=== PATIENT | male | born 1940 | race Caucasian/White ===

== ENCOUNTER 2018-09-16 13:05 | Inpatient (IN) | payer MEDICARE, BC ==
[~2018-09-16] VITALS: Ht 170.2 cm; Wt 89.3 kg
--- NOTE | 2018-09-16 13:19 | NUR ---
pt bib ems from [facility]. pt called ems today after "not feeling right" and dizziness upon waking. pt was found to have hr 36-38 bpm. per ems, pt was administered atropine at previous hospital with no response. iv established en route and 1200mL ns administered service captain. pt connected to monitors. pads placed and connected to zoll. hr 36-38, all other vss. 2L nc placed service captain and pt remains on o2 at this time. edmd present for assessment. ekg completed. unable to determine rhythm at this time. per edmd, ok to provide water. water provided. call light within reach. awaiting further orders.
[2018-09-16] MEDS ORDERED: SODIUM CHLORIDE FLUSH 10ML SYR IVF ONE ×2 (13:30→14:30)
[2018-09-16] MEDS ORDERED: TAMS-11 PO (13:34)
[2018-09-16] MEDS ORDERED: ASPI-496 PO (13:34)
[2018-09-16] MEDS ORDERED: INSU100I13 SC (13:34)
[2018-09-16] MEDS ORDERED: DILT240C55 PO (13:34)
[2018-09-16] MEDS ORDERED: ESZO1TAB8 PO (13:34)
[2018-09-16] MEDS ORDERED: FURO20TA3 PO (13:34)
[2018-09-16] MEDS ORDERED: TERA2CAP3 PO (13:34)
[2018-09-16] MEDS ORDERED: INSU100C5 SQ-INSULIN (13:34)
[2018-09-16] MEDS ORDERED: ATOR-2 PO (13:34)
[2018-09-16] MEDS ORDERED: CHOL500015 PO (13:34)
[2018-09-16] MEDS ORDERED: PATI8.4P PO (13:34)
[2018-09-16] MEDS ORDERED: CARV25TA12 PO (13:34)
[2018-09-16 13:44] LABS: BASOPHILS # (AUTO) 0.04 x10^3/uL (0-0.1); BASOPHILS % (AUTO) 0 % (0-1); EOSINOPHILS # (AUTO) 0.04 x10^3/uL (0-0.4); EOSINOPHILS % (AUTO) 1 % (1-7); LYMPHOCYTES # (AUTO) 0.93 x10^3/uL (1-3.4); LYMPHOCYTES % (AUTO) 11 % (22-44); MD NO; MEAN CORPUSCULAR HEMOGLOBIN 30.5 pg (27.5-34.5); MEAN CORPUSCULAR HGB CONC 32.5 g/dL (33.2-36.2); MEAN CORPUSCULAR VOLUME 93.9 fL (81-97); MEAN PLATELET VOLUME 7.8 fL (7.4-10.4); MONOCYTES # (AUTO) 0.68 x10^3/uL (0.2-0.8); MONOCYTES % (AUTO) 8 % (2-9); NEUTROPHILS % (AUTO) 80 % (42-75); PLATELET COUNT 278 x10^3/uL (130-400); RED BLOOD COUNT 3.56 x10^6/uL (4.38-5.82); RED CELL DISTRIBUTION WIDTH 14.1 % (9.4-14.8)
[2018-09-16 13:54] LABS: ALBUMIN 3.4 g/dL (3.4-5.0); ANION GAP 5 mmol/L (5-15); CALCIUM 8.2 mg/dL (8.5-10.1); CHLORIDE 106 mmol/L (98-107)
[2018-09-16 13:55] LABS: CREATININE 2.72 mg/dL (0.7-1.3)
[2018-09-16] MEDS ORDERED: SODIUM BICARB 8.4%, 50ML SYRINGE ONE (14:18)
[2018-09-16] MEDS ORDERED: SODIUM BICARBONATE 1 MEQ/ML, 50ML VIAL ONE (14:18)
[2018-09-16] MEDS ORDERED: INSULIN LISPRO 100 UNITS/ML, PEN ONE (14:20)
[2018-09-16] MEDS ORDERED: DEXTROSE 50%, 50ML SYRINGE IVPush ONE (14:30)
[2018-09-16] MEDS ORDERED: INSULIN REGULAR 100 UNITS/ML, 3ML VIAL IVPush ONE (14:30)
[2018-09-16] MEDS ORDERED: SODIUM CHLORIDE 0.9% 1,000ML IVBOLUS ONE (14:30)
[2018-09-16] MEDS ORDERED: SODIUM BICARB 8.4%, 50ML SYRINGE IVPush ONE (14:30)
--- NOTE | 2018-09-16 14:44 | NUR ---
PT RESTING IN ROOM. BLANKETS PROVIDED. PT MEDICATED PER JUL. HR UP TO 50S IMMEDIATELY AFTER BODY COVERER. EDMD UPDATED. ALL OTHER VSS. NO OTHER NEEDS REQUESTED.
[2018-09-16] MEDS ORDERED: SODIUM CHLORIDE FLUSH 10ML SYR IVF PRN (15:30)
[2018-09-16 15:47] LABS: BASOPHILS # (AUTO) 0.02 x10^3/uL (0-0.1); BASOPHILS % (AUTO) 0 % (0-1); EOSINOPHILS # (AUTO) 0.04 x10^3/uL (0-0.4); EOSINOPHILS % (AUTO) 1 % (1-7); LYMPHOCYTES # (AUTO) 1.01 x10^3/uL (1-3.4); LYMPHOCYTES % (AUTO) 14 % (22-44); MD NO; MEAN CORPUSCULAR HEMOGLOBIN 31.5 pg (27.5-34.5); MEAN CORPUSCULAR HGB CONC 33.6 g/dL (33.2-36.2); MEAN CORPUSCULAR VOLUME 93.8 fL (81-97); MEAN PLATELET VOLUME 7.8 fL (7.4-10.4); MONOCYTES # (AUTO) 0.66 x10^3/uL (0.2-0.8); MONOCYTES % (AUTO) 9 % (2-9); NEUTROPHILS # (AUTO) 5.67 x10^3/uL (1.8-6.8); NEUTROPHILS % (AUTO) 77 % (42-75); PLATELET COUNT 265 x10^3/uL (130-400); RED BLOOD COUNT 3.45 x10^6/uL (4.38-5.82); RED CELL DISTRIBUTION WIDTH 14.1 % (9.4-14.8)
[2018-09-16 15:57] LABS: ANION GAP 5 mmol/L (5-15); CALCIUM 7.9 mg/dL (8.5-10.1); CHLORIDE 108 mmol/L (98-107); CREATININE 2.54 mg/dL (0.7-1.3)
[2018-09-16] MEDS ORDERED: hydrALAzine 20 MG/ML, 1ML IVPush PRN (16:00)
[2018-09-16] MEDS ORDERED: ACETAMINOPHEN 325 MG TABLET PO PRN (16:00)
[2018-09-16 16:07] LABS: THYROID STIMULATING HORMONE 0.747 mIU/L (0.358-3.740)
[2018-09-16 16:34] LABS: TROPONIN I < 0.015 ng/mL (0.000-0.045)
[2018-09-16 16:41] LABS: HEMOGLOBIN A1C 9.5 % (4.2-6.3)
[2018-09-16 18:04] VITALS: BP 153/64
[2018-09-16 19:44] VITALS: BP 160/64
[2018-09-16] MEDS: ATORVASTATIN 40 MG TABLET PO SCH (20:59)
[2018-09-16] MEDS: TERAZOSIN 2MG CAPSULE PO SCH (20:59)
[2018-09-16] MEDS ORDERED: AMLODIPINE 5 MG TABLET PO ONE (21:00)
[2018-09-16] MEDS: INSULIN GLARGINE 100 UNITS/ML, PEN SQ-INSULIN SCH (21:26)
[2018-09-16 22:44] LABS: TROPONIN I < 0.015 ng/mL (0.000-0.045)
[2018-09-17] VITALS (8 sets, daily range): BP systolic 135–177; BP diastolic 62–83
[2018-09-17] MEDS: ASPIRIN 81 MG TABLET EC PO SCH (09:13)
[2018-09-17] MEDS: CHOLECALCIFEROL 5,000u TAB PO SCH (09:13)
[2018-09-17] MEDS: TAMSULOSIN 0.4 MG CAP.ER.24H PO SCH (09:13)
[2018-09-17 11:25] LABS: BASOPHILS % (AUTO) 0 % (0-1); EOSINOPHILS # (AUTO) 0.13 x10^3/uL (0-0.4); EOSINOPHILS % (AUTO) 2 % (1-7); LYMPHOCYTES # (AUTO) 0.76 x10^3/uL (1-3.4); LYMPHOCYTES % (AUTO) 11 % (22-44); MD NO; MEAN CORPUSCULAR HEMOGLOBIN 31.1 pg (27.5-34.5); MEAN CORPUSCULAR VOLUME 94.3 fL (81-97); MEAN PLATELET VOLUME 7.7 fL (7.4-10.4); MONOCYTES # (AUTO) 0.76 x10^3/uL (0.2-0.8); MONOCYTES % (AUTO) 11 % (2-9); NEUTROPHILS # (AUTO) 5.06 x10^3/uL (1.8-6.8); NEUTROPHILS % (AUTO) 75 % (42-75); PLATELET COUNT 264 x10^3/uL (130-400)
[2018-09-17 11:39] LABS: ANION GAP 4 mmol/L (5-15); CALCIUM 8.3 mg/dL (8.5-10.1); CHLORIDE 110 mmol/L (98-107)
[2018-09-17] MEDS: AMLODIPINE 5 MG TABLET PO SCH ×2 (12:11→20:59)
[2018-09-17] MEDS: CARVEDILOL 6.25 MG TABLET PO SCH (17:50)
[2018-09-17] MEDS: ATORVASTATIN 40 MG TABLET PO SCH (20:59)
[2018-09-17] MEDS: TERAZOSIN 2MG CAPSULE PO SCH (20:59)
[2018-09-17] MEDS: INSULIN GLARGINE 100 UNITS/ML, PEN SQ-INSULIN SCH (21:00)
[2018-09-18 01:55] VITALS: BP 158/73
[2018-09-18 06:24] VITALS: BP 158/73
[2018-09-18] MEDS: CARVEDILOL 6.25 MG TABLET PO SCH (06:25)
[2018-09-18 07:30] VITALS: BP 167/68
[2018-09-18] MEDS: ASPIRIN 81 MG TABLET EC PO SCH (08:54)
[2018-09-18] MEDS: AMLODIPINE 5 MG TABLET PO SCH (08:54)
[2018-09-18] MEDS: CHOLECALCIFEROL 5,000u TAB PO SCH (08:55)
[2018-09-18] MEDS: TAMSULOSIN 0.4 MG CAP.ER.24H PO SCH (08:55)
[2018-09-18] MEDS ORDERED: CARV6.2512 PO (10:52)
[2018-09-18] MEDS ORDERED: AMLO-150 PO (10:52)
[2018-09-18] MEDS ORDERED: HYDR-3341 PO (10:52)
== END 2018-09-18 13:25 | disposition home or self-care (01) | DRG 640 ==
LOC: ED 15:27 → EDIP 15:28 → ED 15:44 → EDIP 16:07 → 5SO 17:42 → DCLOUNGE 09-18 13:08
PROVIDERS: ADMIT Internal Medicine; ATTEND Internal Medicine
DX: E87.5 Hyperkalemia (principal); N17.0 Acute kidney failure with tubular necrosis; E87.1 Hypo-osmolality and hyponatremia; I12.9 Hypertensive chronic kidney disease with stage 1 through stage 4 chronic kidney disease, or unspecified chronic kidney disease; G47.00 Insomnia, unspecified; M19.90 Unspecified osteoarthritis, unspecified site; R91.1 Solitary pulmonary nodule; I95.9 Hypotension, unspecified; D64.9 Anemia, unspecified; E78.5 Hyperlipidemia, unspecified; F17.210 Nicotine dependence, cigarettes, uncomplicated; Z96.651 Presence of right artificial knee joint; N18.9 Chronic kidney disease, unspecified; E11.22 Type 2 diabetes mellitus with diabetic chronic kidney disease; E66.9 Obesity, unspecified; Z68.30 Body mass index [BMI] 30.0-30.9, adult; Z85.528 Personal history of other malignant neoplasm of kidney; Z90.5 Acquired absence of kidney; Z90.49 Acquired absence of other specified parts of digestive tract; Z98.52 Vasectomy status; Z98.49 Cataract extraction status, unspecified eye
CPT/HCPCS: 36415; 80048; 82040; 82962; 83036; 84443; 84484; 85025; 93005; 93306; 96374; 96375; 99291; G0378; J1815; J7030

== ENCOUNTER 2018-10-24 11:48 | Outpatient (CLI) | payer MEDICARE, BC ==
[~2018-10-24 11:48] MED LIST: AMLO-150 PO; ASPI-496 PO; ATOR-2 PO; CARV25TA12 PO; CARV6.2512 PO; CHOL500015 PO; DILT240C55 PO; ESZO1TAB8 PO; FURO20TA3 PO; HYDR-3341 PO; INSU100C5 SQ-INSULIN; INSU100I13 SC; PATI8.4P PO; REGADENOSON 0.4 MG/5 ML SYRINGE ONE; TAMS-11 PO; TERA2CAP3 PO
== END 2018-10-24 23:59 | disposition home or self-care (01) ==
LOC: CFH 11:48
PROVIDERS: ATTEND Internal Medicine Cardiovascular Disease
DX: R06.02 Shortness of breath (principal)
CPT/HCPCS: 78452; 93017; A9502; J2785

== ENCOUNTER 2019-04-28 21:51 | Inpatient (IN) | payer MEDICARE, BC ==
[~2019-04-28] VITALS: Ht 167.6 cm; Wt 84.0 kg
[~2019-04-28 21:51] MED LIST changes: -REGADENOSON 0.4 MG/5 ML SYRINGE ONE
[2019-04-28] MEDS ORDERED: SODIUM CHLORIDE 0.9% 1,000 ML IV ONE (22:07)
[2019-04-28] MEDS ORDERED: SODIUM CHLORIDE FLUSH 10ML SYR IVF ONE (22:30)
[2019-04-28] MEDS ORDERED: INSU100I13 SC (22:43)
[2019-04-28] MEDS ORDERED: LISI5TAB7 PO (22:45)
[2019-04-28] MEDS ORDERED: LISINOPRIL 5 MG TABLET PO SCH (23:00)
[2019-04-28] MEDS ORDERED: ZOLPIDEM 5MG TABLET PO PRN (23:00)
[2019-04-28] MEDS: TERAZOSIN 2MG CAPSULE PO SCH (23:00)
[2019-04-28 23:08] LABS: BASOPHILS # (AUTO) 0.06 x10^3/uL (0-0.1); BASOPHILS % (AUTO) 1 % (0-1); EOSINOPHILS # (AUTO) 0.08 x10^3/uL (0-0.4); EOSINOPHILS % (AUTO) 1 % (1-7); LYMPHOCYTES # (AUTO) 1.13 x10^3/uL (1-3.4); LYMPHOCYTES % (AUTO) 13 % (22-44); MD NO; MEAN CORPUSCULAR HEMOGLOBIN 30.9 pg (27.5-34.5); MEAN CORPUSCULAR HGB CONC 33.1 g/dL (33.2-36.2); MEAN CORPUSCULAR VOLUME 93.4 fL (81-97); MEAN PLATELET VOLUME 8.1 fL (7.4-10.4); MONOCYTES % (AUTO) 8 % (2-9); NEUTROPHILS # (AUTO) 6.51 x10^3/uL (1.8-6.8); NEUTROPHILS % (AUTO) 77 % (42-75); PLATELET COUNT 331 x10^3/uL (130-400); RED BLOOD COUNT 4.26 x10^6/uL (4.38-5.82); RED CELL DISTRIBUTION WIDTH 14.1 % (9.4-14.8)
[2019-04-28 23:15] LABS: ALANINE AMINOTRANSFERASE 27 U/L (12-78); ANION GAP 6 mmol/L (5-15); CALCIUM 8.7 mg/dL (8.5-10.1); CHLORIDE 106 mmol/L (98-107)
[2019-04-28 23:18] LABS: ALKALINE PHOSPHATASE 71 U/L (45-117); BILIRUBIN,TOTAL 0.3 mg/dL (0.2-1.0); CREATININE 2.78 mg/dL (0.7-1.3); TOTAL PROTEIN 6.3 g/dL (6.4-8.2)
[2019-04-28] MEDS ORDERED: BISACODYL 10 MG SUPP PR PRN (23:30)
[2019-04-28] MEDS ORDERED: OXYcodone IR 5MG TABLET PO PRN (23:30)
[2019-04-28] MEDS ORDERED: ONDANSETRON ODT 4 MG PO PRN (23:30)
[2019-04-28] MEDS ORDERED: DOCUSATE 100 MG CAPSULE PO PRN (23:30)
[2019-04-28] MEDS ORDERED: ONDANSETRON 2MG/ML, 2ML IVPush PRN (23:30)
[2019-04-28] MEDS ORDERED: ACETAMINOPHEN 325 MG TABLET PO PRN (23:30)
[2019-04-28] MEDS ORDERED: morphine SULFATE 10 MG/ML, 1ML IVPush PRN (23:30)
[2019-04-28] MEDS ORDERED: LACTATED RINGERS 1,000 ML IV SCH (23:30)
[2019-04-28] MEDS ORDERED: POLYETHYLENE GLYCOL 17 GM PACKET PO PRN (23:30)
[2019-04-28] MEDS ORDERED: hydrALAzine 20 MG/ML, 1ML IVPush PRN (23:30)
[2019-04-28] MEDS ORDERED: PROMETHAZINE 25 MG/ML, 1ML IM PRN (23:30)
[2019-04-28 23:51] LABS: FREE T4 (FREE THYROXINE) 1.06 ng/dL (0.76-1.46)
[2019-04-29] MEDS ORDERED: TERAZOSIN 1MG CAPSULE ONE (00:54)
[2019-04-29 00:58] LABS: HEMOGLOBIN A1C 8.6 % (4.2-6.3)
[2019-04-29] MEDS: HEPARIN 5,000 UNITS/ML, 1ML SQ SCH ×3 (01:01→16:44)
[2019-04-29] MEDS: ATORVASTATIN 40 MG TABLET PO SCH ×2 (01:01→21:46)
[2019-04-29] MEDS: ISOSORBIDE MONONITRATE ER 60 MG TABLET PO SCH ×2 (01:01→23:30)
[2019-04-29] MEDS: INSULIN GLARGINE 100 UNITS/ML, PEN SQ-INSULIN SCH ×2 (01:02→21:59)
[2019-04-29] MEDS: AMLODIPINE 5 MG TABLET PO SCH ×3 (01:02→21:46)
[2019-04-29] MEDS: CEFTRIAXONE PMX 2GM/50ML 50 ML IV SCH (01:15)
[2019-04-29 01:41] VITALS: BP 154/82
[2019-04-29] MEDS: CARVEDILOL 6.25 MG TABLET PO SCH ×2 (05:31→16:43)
[2019-04-29] MEDS ORDERED: ASPIRIN 325 MG TABLET EC PO SCH (06:00)
[2019-04-29 07:15] LABS: BASOPHILS # (AUTO) 0.04 x10^3/uL (0-0.1); BASOPHILS % (AUTO) 1 % (0-1); EOSINOPHILS # (AUTO) 0.11 x10^3/uL (0-0.4); EOSINOPHILS % (AUTO) 2 % (1-7); LYMPHOCYTES # (AUTO) 0.98 x10^3/uL (1-3.4); LYMPHOCYTES % (AUTO) 14 % (22-44); MD NO; MEAN CORPUSCULAR HEMOGLOBIN 30.8 pg (27.5-34.5); MEAN CORPUSCULAR HGB CONC 32.6 g/dL (33.2-36.2); MEAN CORPUSCULAR VOLUME 94.4 fL (81-97); MEAN PLATELET VOLUME 8.1 fL (7.4-10.4); MONOCYTES # (AUTO) 0.71 x10^3/uL (0.2-0.8); MONOCYTES % (AUTO) 10 % (2-9); NEUTROPHILS # (AUTO) 4.99 x10^3/uL (1.8-6.8); NEUTROPHILS % (AUTO) 73 % (42-75); PLATELET COUNT 285 x10^3/uL (130-400); RED BLOOD COUNT 3.84 x10^6/uL (4.38-5.82); RED CELL DISTRIBUTION WIDTH 14.2 % (9.4-14.8)
[2019-04-29 07:19] VITALS: BP 116/60
[2019-04-29 07:22] LABS: ALANINE AMINOTRANSFERASE 20 U/L (12-78); ALBUMIN 2.5 g/dL (3.4-5.0); ANION GAP 8 mmol/L (5-15); CHLORIDE 107 mmol/L (98-107); CHOLESTEROL, TOTAL 126 mg/dL (140-239); CREATININE 2.88 mg/dL (0.7-1.3)
[2019-04-29 07:25] LABS: ALKALINE PHOSPHATASE 66 U/L (45-117); BILIRUBIN,TOTAL 0.2 mg/dL (0.2-1.0); CHOL/HDL RATIO 4.1; HDL CHOL % 25 % (26-37); HDL CHOLESTEROL (DIRECT) 31 mg/dL (40-60); LDL CHOLESTEROL,CALCULATED 48 mg/dL (54-169); LDL/HDL RATIO 1.5 (0.5-3.0); TOTAL PROTEIN 5.6 g/dL (6.4-8.2); TRIGLYCERIDES 237 mg/dL (50-200); VLDL CHOLESTEROL 47 mg/dL (0-25)
[2019-04-29] MEDS: CHOLECALCIFEROL 5,000u TAB PO SCH (08:37)
[2019-04-29] MEDS: INSULIN LISPRO 100 UNITS/ML, PEN SQ-INSULIN SCH ×4 (08:46→21:58)
[2019-04-29] MEDS ORDERED: OMNIPAQUE 350 MG/ML, 100ML BOTTLE ONE (09:22)
[2019-04-29] MEDS ORDERED: GOLYTELY 4,000ML ORAL.SOL PO ONE (11:00)
[2019-04-29 14:00] VITALS: BP 134/71
[2019-04-29 16:42] VITALS: BP 140/83
[2019-04-29] MEDS: SODIUM CHLORIDE 0.9% 1,000 ML IV SCH (16:44)
[2019-04-29 20:00] LABS: MICROSCOPIC AUTO
[2019-04-29 20:12] LABS: CREATININE,URINE RANDOM 70.7 mg/dL
[2019-04-29 20:37] VITALS: BP 127/76
[2019-04-29] MEDS: TERAZOSIN 2MG CAPSULE PO SCH (21:45)
[2019-04-30] MEDS: HEPARIN 5,000 UNITS/ML, 1ML SQ SCH ×2 (00:40→20:24)
[2019-04-30] MEDS: CEFTRIAXONE PMX 2GM/50ML 50 ML IV SCH (00:40)
[2019-04-30 00:49] VITALS: BP 132/66
[2019-04-30] MEDS: SODIUM CHLORIDE 0.9% 1,000 ML IV SCH (02:31)
[2019-04-30 05:33] LABS: BASOPHILS # (AUTO) 0.04 x10^3/uL (0-0.1); BASOPHILS % (AUTO) 1 % (0-1); EOSINOPHILS # (AUTO) 0.17 x10^3/uL (0-0.4); EOSINOPHILS % (AUTO) 3 % (1-7); LYMPHOCYTES # (AUTO) 1.15 x10^3/uL (1-3.4); LYMPHOCYTES % (AUTO) 17 % (22-44); MD NO; MEAN CORPUSCULAR HEMOGLOBIN 31.8 pg (27.5-34.5); MEAN CORPUSCULAR HGB CONC 33.4 g/dL (33.2-36.2); MEAN CORPUSCULAR VOLUME 95.1 fL (81-97); MEAN PLATELET VOLUME 8.1 fL (7.4-10.4); MONOCYTES # (AUTO) 0.77 x10^3/uL (0.2-0.8); MONOCYTES % (AUTO) 11 % (2-9); NEUTROPHILS % (AUTO) 69 % (42-75); PLATELET COUNT 251 x10^3/uL (130-400); RED BLOOD COUNT 3.56 x10^6/uL (4.38-5.82); RED CELL DISTRIBUTION WIDTH 14.3 % (9.4-14.8)
[2019-04-30 05:38] LABS: TOTAL IRON BINDING CAPACITY 219 mcg/dL (250-450)
[2019-04-30 05:39] LABS: CHLORIDE 110 mmol/L (98-107)
[2019-04-30 05:47] LABS: ALANINE AMINOTRANSFERASE 24 U/L (12-78); ALBUMIN 2.5 g/dL (3.4-5.0); ALKALINE PHOSPHATASE 61 U/L (45-117); ANION GAP 8 mmol/L (5-15); BILIRUBIN,TOTAL 0.4 mg/dL (0.2-1.0); CALCIUM 7.9 mg/dL (8.5-10.1); CREATININE 2.46 mg/dL (0.7-1.3); TOTAL PROTEIN 5.3 g/dL (6.4-8.2)
[2019-04-30] MEDS: ASPIRIN 81 MG TABLET EC PO SCH (05:47)
[2019-04-30] MEDS: CARVEDILOL 6.25 MG TABLET PO SCH ×2 (05:47→16:22)
[2019-04-30 06:32] LABS: % IRON SATURATION 43 % (20-55); IRON LEVEL 94 mcg/dL (65-175)
[2019-04-30] MEDS: INSULIN LISPRO 100 UNITS/ML, PEN SQ-INSULIN SCH ×4 (07:00→20:31)
[2019-04-30] MEDS ORDERED: PROPOFOL 50 ML ONE (07:47)
[2019-04-30] MEDS ORDERED: MIDAZOLAM 1 MG/ML, 2ML IV PRN (08:30)
[2019-04-30] MEDS ORDERED: FENTANYL PF 100 MCG/2ML IV PRN (08:30)
[2019-04-30] MEDS ORDERED: ONDANSETRON ODT 8 MG PO PRN (08:30)
[2019-04-30] MEDS ORDERED: EPHEDRINE 50 MG/ML, 1ML IM PRN (08:30)
[2019-04-30] MEDS ORDERED: ONDANSETRON 2MG/ML, 2ML IV PRN (08:30)
[2019-04-30] MEDS: CHOLECALCIFEROL 5,000u TAB PO SCH (10:24)
[2019-04-30] MEDS: AMLODIPINE 5 MG TABLET PO SCH ×2 (10:24→20:23)
[2019-04-30 10:25] VITALS: BP 158/72
[2019-04-30] MEDS ORDERED: SODIUM CHLORIDE 0.9% 1,000 ML IV SCH (12:30)
[2019-04-30 12:33] VITALS: BP 155/89
[2019-04-30 16:21] VITALS: BP 149/79
[2019-04-30 19:22] VITALS: BP 162/76
[2019-04-30] MEDS: TERAZOSIN 2MG CAPSULE PO SCH (20:23)
[2019-04-30] MEDS: ATORVASTATIN 40 MG TABLET PO SCH (20:23)
[2019-04-30] MEDS: INSULIN GLARGINE 100 UNITS/ML, PEN SQ-INSULIN SCH (20:30)
[2019-05-01] MEDS: CEFTRIAXONE PMX 2GM/50ML 50 ML IV SCH (01:00)
[2019-05-01 05:14] VITALS: BP 171/80
[2019-05-01 05:33] LABS: BASOPHILS # (AUTO) 0.03 x10^3/uL (0-0.1); BASOPHILS % (AUTO) 0 % (0-1); EOSINOPHILS # (AUTO) 0.24 x10^3/uL (0-0.4); EOSINOPHILS % (AUTO) 3 % (1-7); LYMPHOCYTES # (AUTO) 0.93 x10^3/uL (1-3.4); LYMPHOCYTES % (AUTO) 12 % (22-44); MD NO; MEAN CORPUSCULAR HEMOGLOBIN 31.2 pg (27.5-34.5); MEAN CORPUSCULAR HGB CONC 32.8 g/dL (33.2-36.2); MEAN CORPUSCULAR VOLUME 94.9 fL (81-97); MEAN PLATELET VOLUME 7.8 fL (7.4-10.4); MONOCYTES # (AUTO) 0.87 x10^3/uL (0.2-0.8); MONOCYTES % (AUTO) 12 % (2-9); NEUTROPHILS # (AUTO) 5.49 x10^3/uL (1.8-6.8); NEUTROPHILS % (AUTO) 73 % (42-75); PLATELET COUNT 253 x10^3/uL (130-400); RED BLOOD COUNT 3.75 x10^6/uL (4.38-5.82); RED CELL DISTRIBUTION WIDTH 14.5 % (9.4-14.8)
[2019-05-01 05:43] LABS: ALBUMIN 2.6 g/dL (3.4-5.0); CHLORIDE 114 mmol/L (98-107); CREATININE 2.58 mg/dL (0.7-1.3)
[2019-05-01 05:48] LABS: ANION GAP 7 mmol/L (5-15); CALCIUM 8.1 mg/dL (8.5-10.1)
[2019-05-01] MEDS: HEPARIN 5,000 UNITS/ML, 1ML SQ SCH (06:19)
[2019-05-01] MEDS: ASPIRIN 81 MG TABLET EC PO SCH (06:19)
[2019-05-01] MEDS: CARVEDILOL 6.25 MG TABLET PO SCH (06:19)
[2019-05-01] MEDS: INSULIN LISPRO 100 UNITS/ML, PEN SQ-INSULIN SCH ×2 (07:00→11:33)
[2019-05-01 07:44] VITALS: BP 167/59
[2019-05-01] MEDS: CHOLECALCIFEROL 5,000u TAB PO SCH (08:41)
[2019-05-01] MEDS: AMLODIPINE 5 MG TABLET PO SCH (08:41)
[2019-05-01] MEDS: ISOSORBIDE MONONITRATE ER 60 MG TABLET PO SCH (08:41)
[2019-05-01 11:26] VITALS: BP 142/78
== END 2019-05-01 11:55 | disposition home or self-care (01) | DRG 393 ==
LOC: ED 22:43 → EDIP 22:45 → 4NE 23:55 → DCLOUNGE 05-01 11:48
PROVIDERS: ADMIT Internal Medicine; ATTEND Hospitalist
PROC: 0DB68ZX Excision of Stomach, Via Natural or Artificial Opening Endoscopic, Diagnostic (ICD-10-PCS; 2019-04-30)
PROC: 0DBE8ZZ Excision of Large Intestine, Via Natural or Artificial Opening Endoscopic (ICD-10-PCS; 2019-04-30)
PROC: 0DBA8ZX Excision of Jejunum, Via Natural or Artificial Opening Endoscopic, Diagnostic (ICD-10-PCS; principal; 2019-04-30 08:00)
DX: K31.7 Polyp of stomach and duodenum (principal); N17.0 Acute kidney failure with tubular necrosis; K55.1 Chronic vascular disorders of intestine; K52.9 Noninfective gastroenteritis and colitis, unspecified; K63.5 Polyp of colon; D64.9 Anemia, unspecified; E11.22 Type 2 diabetes mellitus with diabetic chronic kidney disease; E83.51 Hypocalcemia; E78.5 Hyperlipidemia, unspecified; E86.0 Dehydration; I12.9 Hypertensive chronic kidney disease with stage 1 through stage 4 chronic kidney disease, or unspecified chronic kidney disease; K29.70 Gastritis, unspecified, without bleeding; K21.0 Gastro-esophageal reflux disease with esophagitis; N18.3 Chronic kidney disease, stage 3 (moderate); N28.1 Cyst of kidney, acquired; F17.210 Nicotine dependence, cigarettes, uncomplicated; Z96.651 Presence of right artificial knee joint; Z79.4 Long term (current) use of insulin; Z85.528 Personal history of other malignant neoplasm of kidney; Z90.5 Acquired absence of kidney
CPT/HCPCS: 36415; 74174; 76770; 80053; 80061; 80069; 81001; 82306; 82436; 82570; 82728; 82962; 83036; 83540; 83550; 83605; 83735; 83970; 84100; 84133; 84156; 84300; 84439; 84443; 84550; 85025; 87205; 88305; 93005; 99285; G0378; J0696; J1644; J2704; Q9967; J1815; J7030; J7120

== ENCOUNTER 2020-01-11 14:59 | Inpatient (IN) | payer MEDICARE, BC ==
[~2020-01-11] VITALS: Ht 170.2 cm; Wt 99.5 kg
[~2020-01-11 14:59] MED LIST changes: +LISI5TAB7 PO
[2020-01-11] MEDS ORDERED: SODIUM CHLORIDE FLUSH 10ML SYR IVF ONE (15:30)
[2020-01-11 15:42] LABS: BASOPHILS # (AUTO) 0.01 x10^3/uL (0-0.1); BASOPHILS % (AUTO) 0 % (0-1); EOSINOPHILS # (AUTO) 0.03 x10^3/uL (0-0.4); EOSINOPHILS % (AUTO) 0 % (1-7); LYMPHOCYTES # (AUTO) 0.74 x10^3/uL (1-3.4); LYMPHOCYTES % (AUTO) 7 % (22-44); MD NO; MEAN CORPUSCULAR HEMOGLOBIN 29.4 pg (27.5-34.5); MEAN CORPUSCULAR HGB CONC 32.9 g/dL (33.2-36.2); MEAN CORPUSCULAR VOLUME 89.3 fL (81-97); MEAN PLATELET VOLUME 8.1 fL (7.4-10.4); MONOCYTES # (AUTO) 0.82 x10^3/uL (0.2-0.8); MONOCYTES % (AUTO) 8 % (2-9); NEUTROPHILS # (AUTO) 9.35 x10^3/uL (1.8-6.8); NEUTROPHILS % (AUTO) 85 % (42-75); PLATELET COUNT 317 x10^3/uL (130-400); RED BLOOD COUNT 3.37 x10^6/uL (4.38-5.82); RED CELL DISTRIBUTION WIDTH 14.9 % (9.4-14.8)
[2020-01-11 15:55] LABS: ALANINE AMINOTRANSFERASE 42 U/L (12-78); ALBUMIN 2.2 g/dL (3.4-5.0); ANION GAP 10 mmol/L (5-15); CHLORIDE 95 mmol/L (98-107)
[2020-01-11 15:57] LABS: ALKALINE PHOSPHATASE 126 U/L (45-117); BILIRUBIN,TOTAL 0.3 mg/dL (0.2-1.0); TOTAL PROTEIN 6.4 g/dL (6.4-8.2)
[2020-01-11] MEDS: SODIUM CHLORIDE 0.9% 1,000 ML IV SCH (16:58)
[2020-01-11] MEDS ORDERED: ONDANSETRON 2MG/ML, 2ML IVPush PRN (17:00)
[2020-01-11] MEDS ORDERED: LABETALOL 5MG/ML, 20ML IVPush PRN (17:00)
[2020-01-11] MEDS ORDERED: hydrALAzine 20 MG/ML, 1ML IVPush PRN (17:00)
[2020-01-11] MEDS ORDERED: POLYETHYLENE GLYCOL 17 GM PACKET PO PRN (17:00)
[2020-01-11] MEDS ORDERED: BISACODYL 10 MG SUPP PR PRN (17:00)
[2020-01-11 17:28] LABS: TROPONIN I < 0.015 ng/mL (0.000-0.045)
[2020-01-11] MEDS ORDERED: CARVEDILOL 3.125 MG TABLET ONE (17:45)
[2020-01-11] MEDS ORDERED: HEPARIN 5,000 UNITS/ML, 1ML ONE (17:45)
[2020-01-11] MEDS: HEPARIN 5,000 UNITS/ML, 1ML SQ SCH (17:57)
[2020-01-11] MEDS ORDERED: INSULIN LISPRO SINGLE DOSE, ER SQ-INSULIN ONE (17:59)
[2020-01-11] MEDS ORDERED: CARVEDILOL 6.25 MG TABLET PO SCH (18:00)
[2020-01-11] MEDS: INSULIN LISPRO 100 UNITS/ML, PEN SQ-INSULIN SCH ×2 (18:00→21:39)
[2020-01-11 18:40] VITALS: BP 146/69
[2020-01-11 19:10] VITALS: BP 108/57
[2020-01-11 20:35] VITALS: BP 133/63
[2020-01-11] MEDS: ATORVASTATIN 40 MG TABLET PO SCH (20:36)
[2020-01-11] MEDS: AMLODIPINE 5 MG TABLET PO SCH (20:36)
[2020-01-11 21:16] LABS: TROPONIN I < 0.015 ng/mL (0.000-0.045)
[2020-01-11 21:18] LABS: POTASSIUM,URINE RANDOM 30 mmol/L; SODIUM,URINE RANDOM 15 mmol/L
[2020-01-11 21:19] LABS: CHLORIDE,URINE RANDOM < 10 mmol/L
[2020-01-11] MEDS: INSULIN GLARGINE 100 UNITS/ML, PEN SQ-INSULIN SCH (21:39)
[2020-01-12 00:15] VITALS: BP 127/75
[2020-01-12] MEDS: HEPARIN 5,000 UNITS/ML, 1ML SQ SCH ×3 (00:24→16:57)
[2020-01-12 03:39] LABS: BASOPHILS # (AUTO) 0.05 x10^3/uL (0-0.1); BASOPHILS % (AUTO) 1 % (0-1); EOSINOPHILS % (AUTO) 2 % (1-7); LYMPHOCYTES % (AUTO) 11 % (22-44); MD NO; MEAN CORPUSCULAR HEMOGLOBIN 29.4 pg (27.5-34.5); MEAN CORPUSCULAR HGB CONC 32.7 g/dL (33.2-36.2); MEAN PLATELET VOLUME 8.2 fL (7.4-10.4); MONOCYTES # (AUTO) 1.09 x10^3/uL (0.2-0.8); MONOCYTES % (AUTO) 12 % (2-9); NEUTROPHILS # (AUTO) 6.99 x10^3/uL (1.8-6.8); NEUTROPHILS % (AUTO) 75 % (42-75); PLATELET COUNT 319 x10^3/uL (130-400); RED BLOOD COUNT 3.29 x10^6/uL (4.38-5.82); RED CELL DISTRIBUTION WIDTH 14.8 % (9.4-14.8)
[2020-01-12 03:44] LABS: ALBUMIN 2.1 g/dL (3.4-5.0); ANION GAP 13 mmol/L (5-15); CALCIUM 7.9 mg/dL (8.5-10.1); CHLORIDE 100 mmol/L (98-107)
[2020-01-12 03:51] LABS: ALANINE AMINOTRANSFERASE 41 U/L (12-78); ALKALINE PHOSPHATASE 117 U/L (45-117); BILIRUBIN,TOTAL 0.2 mg/dL (0.2-1.0); CREATININE 3.66 mg/dL (0.7-1.3); TOTAL PROTEIN 6.3 g/dL (6.4-8.2); TROPONIN I < 0.015 ng/mL (0.000-0.045)
[2020-01-12] MEDS: SODIUM CHLORIDE 0.9% 1,000 ML IV SCH (06:18)
[2020-01-12 06:42] VITALS: BP 123/63
[2020-01-12] MEDS: INSULIN LISPRO 100 UNITS/ML, PEN SQ-INSULIN SCH ×4 (08:08→21:16)
[2020-01-12] MEDS: INSULIN GLARGINE 100 UNITS/ML, PEN SQ-INSULIN SCH (08:09)
[2020-01-12] MEDS: ASPIRIN 81 MG TABLET EC PO SCH (08:11)
[2020-01-12] MEDS: AMLODIPINE 5 MG TABLET PO SCH ×2 (08:11→21:13)
[2020-01-12] MEDS: CHOLECALCIFEROL 5,000u TAB PO SCH (08:11)
[2020-01-12 11:17] LABS: TROPONIN I < 0.015 ng/mL (0.000-0.045)
[2020-01-12 12:19] VITALS: BP 132/97
[2020-01-12 16:56] VITALS: BP 147/62
[2020-01-12] MEDS: FUROSEMIDE 80 MG TABLET PO SCH (16:57)
[2020-01-12 19:36] VITALS: BP 135/61
[2020-01-12] MEDS ORDERED: INSULIN GLARGINE 100 UNITS/ML, PEN SQ-INSULIN SCH ×2 (21:00)
[2020-01-12] MEDS: ATORVASTATIN 40 MG TABLET PO SCH (21:13)
[2020-01-12] MEDS: ACETAMINOPHEN 325 MG TABLET PO PRN (21:14)
[2020-01-12] MEDS: MELATONIN 5 MG TABLET PO PRN (21:14)
[2020-01-13 00:37] VITALS: BP 130/51
[2020-01-13 05:59] LABS: CHLORIDE 105 mmol/L (98-107)
[2020-01-13] MEDS ORDERED: CEFAZOLIN PMX 1GM/50ML 50 ML IVPB ONE ×2 (06:00→15:00)
[2020-01-13] MEDS ORDERED: SODIUM CHLORIDE 0.9% 1,000 ML IV SCH ×2 (06:00)
[2020-01-13 06:09] LABS: % IRON SATURATION 17 % (20-55); ANION GAP 9 mmol/L (5-15); CALCIUM 7.7 mg/dL (8.5-10.1); CREATININE 3.57 mg/dL (0.7-1.3); IRON LEVEL 31 mcg/dL (65-175); TOTAL IRON BINDING CAPACITY 181 mcg/dL (250-450)
[2020-01-13] MEDS ORDERED: CEFAZOLIN 1,000 MG ONE (07:22)
[2020-01-13] MEDS ORDERED: LIDOCAINE 1%, 20ML ONE (07:22)
[2020-01-13] MEDS ORDERED: FENTANYL PF 250 MCG/5ML ONE (07:22)
[2020-01-13] MEDS ORDERED: CEFAZOLIN PMX 1GM/50ML 50 ML ONE (07:22)
[2020-01-13] MEDS ORDERED: MIDAZOLAM 1 MG/ML, 5ML ONE (07:22)
[2020-01-13 08:28] VITALS: BP 124/77
[2020-01-13] MEDS: INSULIN LISPRO 100 UNITS/ML, PEN SQ-INSULIN SCH ×4 (08:43→20:46)
[2020-01-13] MEDS: HEPARIN 5,000 UNITS/ML, 1ML SQ SCH ×2 (09:33→17:17)
[2020-01-13] MEDS: ASPIRIN 81 MG TABLET EC PO SCH (09:34)
[2020-01-13] MEDS: CHOLECALCIFEROL 5,000u TAB PO SCH (09:34)
[2020-01-13] MEDS: FUROSEMIDE 80 MG TABLET PO SCH (09:34)
[2020-01-13] MEDS: INSULIN GLARGINE 100 UNITS/ML, PEN SQ-INSULIN SCH ×2 (09:42→20:46)
[2020-01-13] MEDS: METOLAZONE 2.5 MG TABLET PO SCH (09:48)
[2020-01-13] MEDS: AMLODIPINE 5 MG TABLET PO SCH ×2 (09:48→20:38)
[2020-01-13 14:01] VITALS: BP 147/83
[2020-01-13 17:05] VITALS: BP 156/73
[2020-01-13] MEDS: FUROSEMIDE 40 MG/4 ML IV SCH (17:18)
[2020-01-13 20:32] VITALS: BP 159/77
[2020-01-13] MEDS: ATORVASTATIN 40 MG TABLET PO SCH (20:38)
[2020-01-13] MEDS: MELATONIN 5 MG TABLET PO PRN (20:46)
[2020-01-14 00:56] VITALS: BP 138/58
[2020-01-14] MEDS: HEPARIN 5,000 UNITS/ML, 1ML SQ SCH (00:57)
[2020-01-14 05:28] LABS: BASOPHILS # (AUTO) 0.03 x10^3/uL (0-0.1); BASOPHILS % (AUTO) 0 % (0-1); EOSINOPHILS # (AUTO) 0.23 x10^3/uL (0-0.4); EOSINOPHILS % (AUTO) 2 % (1-7); LYMPHOCYTES # (AUTO) 0.82 x10^3/uL (1-3.4); LYMPHOCYTES % (AUTO) 8 % (22-44); MD NO; MEAN CORPUSCULAR HEMOGLOBIN 29.3 pg (27.5-34.5); MEAN CORPUSCULAR HGB CONC 32.6 g/dL (33.2-36.2); MEAN CORPUSCULAR VOLUME 89.7 fL (81-97); MEAN PLATELET VOLUME 7.7 fL (7.4-10.4); MONOCYTES # (AUTO) 1.03 x10^3/uL (0.2-0.8); MONOCYTES % (AUTO) 10 % (2-9); NEUTROPHILS # (AUTO) 8.49 x10^3/uL (1.8-6.8); NEUTROPHILS % (AUTO) 80 % (42-75); PLATELET COUNT 369 x10^3/uL (130-400); RED BLOOD COUNT 3.27 x10^6/uL (4.38-5.82); RED CELL DISTRIBUTION WIDTH 15.1 % (9.4-14.8)
[2020-01-14 05:37] LABS: INTERNATIONAL NORMALIZED RATIO 1.04 (0.93-1.1); PROTHROMBIN TIME 10.7 Seconds (9.6-11.5)
[2020-01-14 05:41] LABS: CHLORIDE 104 mmol/L (98-107)
[2020-01-14 05:51] LABS: ALANINE AMINOTRANSFERASE 28 U/L (12-78); ALBUMIN 2.3 g/dL (3.4-5.0); ALKALINE PHOSPHATASE 100 U/L (45-117); ANION GAP 10 mmol/L (5-15); BILIRUBIN,TOTAL 0.3 mg/dL (0.2-1.0); CALCIUM 8.4 mg/dL (8.5-10.1); CREATININE 3.55 mg/dL (0.7-1.3); TOTAL PROTEIN 6.2 g/dL (6.4-8.2)
[2020-01-14] MEDS: DEXTROSE 50%, 50ML SYRINGE IVPush PRN (06:41)
[2020-01-14] MEDS ORDERED: DEXTROSE 4 GM TAB.CHEW PO PRN (07:00)
[2020-01-14] MEDS: INSULIN LISPRO 100 UNITS/ML, PEN SQ-INSULIN SCH ×4 (07:00→21:03)
[2020-01-14] MEDS ORDERED: GLUCAGON 1 MG IM PRN (07:00)
[2020-01-14 07:32] VITALS: BP 140/60
[2020-01-14] MEDS: INSULIN GLARGINE 100 UNITS/ML, PEN SQ-INSULIN SCH ×2 (07:32→21:03)
[2020-01-14] MEDS: AMLODIPINE 5 MG TABLET PO SCH ×2 (08:28→21:04)
[2020-01-14] MEDS: FUROSEMIDE 40 MG/4 ML IV SCH ×2 (08:28→18:13)
[2020-01-14] MEDS: CHOLECALCIFEROL 5,000u TAB PO SCH (08:29)
[2020-01-14] MEDS: ASPIRIN 81 MG TABLET EC PO SCH (08:29)
[2020-01-14] MEDS: SODIUM CHLORIDE FLUSH 10ML SYR IVF SCH ×2 (08:30→21:04)
[2020-01-14] MEDS ORDERED: CEFAZOLIN 1,000 MG ONE (11:23)
[2020-01-14] MEDS ORDERED: MIDAZOLAM 1 MG/ML, 5ML ONE (11:23)
[2020-01-14] MEDS ORDERED: CEFAZOLIN PMX 1GM/50ML 50 ML ONE ×2 (11:23→16:57)
[2020-01-14] MEDS ORDERED: FENTANYL PF 100 MCG/2ML ONE (11:23)
[2020-01-14] MEDS ORDERED: LIDOCAINE 2%, 20ML ONE (11:23)
[2020-01-14 13:15] VITALS: BP 119/58
[2020-01-14 15:50] VITALS: BP 149/65
[2020-01-14] MEDS ORDERED: HOLD MEDICATION MC PRN (18:00)
[2020-01-14] MEDS: ATORVASTATIN 40 MG TABLET PO SCH (21:04)
[2020-01-14 21:20] VITALS: BP 143/77
[2020-01-15] MEDS: ESZOPICLONE 1 MG HOMEMEDPO PRN (01:18)
[2020-01-15 01:22] VITALS: BP 144/83
[2020-01-15 05:05] LABS: BASOPHILS # (AUTO) 0.03 x10^3/uL (0-0.1); BASOPHILS % (AUTO) 0 % (0-1); EOSINOPHILS # (AUTO) 0.16 x10^3/uL (0-0.4); EOSINOPHILS % (AUTO) 1 % (1-7); LYMPHOCYTES # (AUTO) 0.62 x10^3/uL (1-3.4); LYMPHOCYTES % (AUTO) 5 % (22-44); MD NO; MEAN CORPUSCULAR HEMOGLOBIN 29.7 pg (27.5-34.5); MEAN CORPUSCULAR HGB CONC 33.1 g/dL (33.2-36.2); MEAN CORPUSCULAR VOLUME 89.6 fL (81-97); MEAN PLATELET VOLUME 7.2 fL (7.4-10.4); MONOCYTES # (AUTO) 1.04 x10^3/uL (0.2-0.8); MONOCYTES % (AUTO) 9 % (2-9); NEUTROPHILS # (AUTO) 9.55 x10^3/uL (1.8-6.8); NEUTROPHILS % (AUTO) 84 % (42-75); PLATELET COUNT 363 x10^3/uL (130-400); RED BLOOD COUNT 3.29 x10^6/uL (4.38-5.82); RED CELL DISTRIBUTION WIDTH 14.5 % (9.4-14.8)
[2020-01-15 05:18] LABS: CHLORIDE 101 mmol/L (98-107)
[2020-01-15 05:25] LABS: ALANINE AMINOTRANSFERASE 19 U/L (12-78); ALBUMIN 2.2 g/dL (3.4-5.0); ALKALINE PHOSPHATASE 99 U/L (45-117); ANION GAP 9 mmol/L (5-15); BILIRUBIN,TOTAL 0.2 mg/dL (0.2-1.0); CALCIUM 8.2 mg/dL (8.5-10.1); CREATININE 3.61 mg/dL (0.7-1.3); TOTAL PROTEIN 6.4 g/dL (6.4-8.2)
[2020-01-15 07:19] VITALS: BP 155/61
[2020-01-15] MEDS: FUROSEMIDE 40 MG/4 ML IV SCH (08:45)
[2020-01-15] MEDS: AMLODIPINE 5 MG TABLET PO SCH ×2 (08:46→21:12)
[2020-01-15] MEDS: INSULIN GLARGINE 100 UNITS/ML, PEN SQ-INSULIN SCH ×2 (08:46→21:42)
[2020-01-15] MEDS: ASPIRIN 81 MG TABLET EC PO SCH (08:46)
[2020-01-15] MEDS: INSULIN LISPRO 100 UNITS/ML, PEN SQ-INSULIN SCH ×4 (08:46→21:43)
[2020-01-15] MEDS: CHOLECALCIFEROL 5,000u TAB PO SCH (08:46)
[2020-01-15] MEDS: SODIUM CHLORIDE FLUSH 10ML SYR IVF SCH ×2 (08:47→21:12)
[2020-01-15] MEDS: METOLAZONE 2.5 MG TABLET PO SCH (09:02)
[2020-01-15] MEDS: AMIODARONE 200 MG TABLET PO SCH ×3 (09:17→21:12)
[2020-01-15] MEDS: IRON SUCROSE COMPLEX 100MG/5ML IV SCH (11:18)
[2020-01-15] MEDS ORDERED: INSULIN GLARGINE 100 UNITS/ML, PEN SQ-INSULIN ONE (12:00)
[2020-01-15] MEDS: ACETAMINOPHEN 325 MG TABLET PO PRN (12:06)
[2020-01-15 12:32] VITALS: BP 142/69
[2020-01-15] MEDS: FUROSEMIDE 80 MG TABLET PO SCH (16:33)
[2020-01-15] MEDS ORDERED: WARFARIN 5 MG TABLET PO-COUM ONE (18:00)
[2020-01-15] MEDS ORDERED: INSULIN GLARGINE 100 UNITS/ML, PEN SQ-INSULIN SCH (21:00)
[2020-01-15 21:09] VITALS: BP 140/62
[2020-01-15] MEDS: ATORVASTATIN 40 MG TABLET PO SCH (21:12)
[2020-01-16 03:43] VITALS: BP 134/72
[2020-01-16 06:39] LABS: BASOPHILS # (AUTO) 0.03 x10^3/uL (0-0.1); BASOPHILS % (AUTO) 0 % (0-1); EOSINOPHILS # (AUTO) 0.23 x10^3/uL (0-0.4); EOSINOPHILS % (AUTO) 2 % (1-7); LYMPHOCYTES # (AUTO) 0.69 x10^3/uL (1-3.4); LYMPHOCYTES % (AUTO) 6 % (22-44); MD NO; MEAN CORPUSCULAR HEMOGLOBIN 29.5 pg (27.5-34.5); MEAN CORPUSCULAR HGB CONC 32.7 g/dL (33.2-36.2); MEAN CORPUSCULAR VOLUME 90.1 fL (81-97); MEAN PLATELET VOLUME 7.3 fL (7.4-10.4); MONOCYTES # (AUTO) 0.97 x10^3/uL (0.2-0.8); MONOCYTES % (AUTO) 9 % (2-9); NEUTROPHILS % (AUTO) 82 % (42-75); PLATELET COUNT 365 x10^3/uL (130-400); RED BLOOD COUNT 3.22 x10^6/uL (4.38-5.82); RED CELL DISTRIBUTION WIDTH 15.1 % (9.4-14.8)
[2020-01-16 06:47] LABS: ALBUMIN 2.2 g/dL (3.4-5.0); ANION GAP 8 mmol/L (5-15); CALCIUM 8.4 mg/dL (8.5-10.1); CHLORIDE 99 mmol/L (98-107)
[2020-01-16 06:52] LABS: ALANINE AMINOTRANSFERASE 11 U/L (12-78); ALKALINE PHOSPHATASE 91 U/L (45-117); BILIRUBIN,TOTAL 0.3 mg/dL (0.2-1.0); TOTAL PROTEIN 6.6 g/dL (6.4-8.2)
[2020-01-16 07:33] VITALS: BP 144/65
[2020-01-16] MEDS: AMIODARONE 200 MG TABLET PO SCH ×2 (08:25→20:41)
[2020-01-16] MEDS: AMLODIPINE 5 MG TABLET PO SCH ×2 (08:25→20:41)
[2020-01-16] MEDS: IRON SUCROSE COMPLEX 100MG/5ML IV SCH (08:25)
[2020-01-16] MEDS: FUROSEMIDE 80 MG TABLET PO SCH ×2 (08:25→16:38)
[2020-01-16] MEDS: CHOLECALCIFEROL 5,000u TAB PO SCH (08:25)
[2020-01-16] MEDS: SODIUM CHLORIDE FLUSH 10ML SYR IVF SCH ×2 (08:26→20:41)
[2020-01-16] MEDS: INSULIN LISPRO 100 UNITS/ML, PEN SQ-INSULIN SCH ×4 (08:29→20:42)
[2020-01-16] MEDS: INSULIN GLARGINE 100 UNITS/ML, PEN SQ-INSULIN SCH (08:50)
[2020-01-16 13:05] VITALS: BP 138/54
[2020-01-16 16:35] VITALS: BP 157/65
[2020-01-16 19:25] VITALS: BP 143/64
[2020-01-16] MEDS: ATORVASTATIN 40 MG TABLET PO SCH (20:41)
[2020-01-16] MEDS ORDERED: INSULIN GLARGINE 100 UNITS/ML, PEN SQ-INSULIN SCH (21:00)
[2020-01-16] MEDS: ESZOPICLONE 1 MG HOMEMEDPO PRN (22:38)
[2020-01-17 01:16] VITALS: BP 153/66
[2020-01-17 05:21] LABS: ALBUMIN 2.2 g/dL (3.4-5.0); ANION GAP 9 mmol/L (5-15); CALCIUM 8.3 mg/dL (8.5-10.1); CHLORIDE 99 mmol/L (98-107); CREATININE 5.05 mg/dL (0.7-1.3)
[2020-01-17 07:15] VITALS: BP 131/60
[2020-01-17] MEDS: AMLODIPINE 5 MG TABLET PO SCH ×2 (08:53→20:24)
[2020-01-17] MEDS: AMIODARONE 200 MG TABLET PO SCH ×2 (08:53→20:24)
[2020-01-17] MEDS: FUROSEMIDE 80 MG TABLET PO SCH (08:53)
[2020-01-17] MEDS: CHOLECALCIFEROL 5,000u TAB PO SCH (08:55)
[2020-01-17] MEDS: SODIUM CHLORIDE FLUSH 10ML SYR IVF SCH ×2 (08:55→20:24)
[2020-01-17] MEDS: IRON SUCROSE COMPLEX 100MG/5ML IV SCH (08:55)
[2020-01-17] MEDS: INSULIN LISPRO 100 UNITS/ML, PEN SQ-INSULIN SCH ×4 (09:59→20:47)
[2020-01-17 12:58] VITALS: BP 142/63
[2020-01-17 20:14] VITALS: BP 154/62
[2020-01-17] MEDS: TERAZOSIN 2MG CAPSULE PO SCH (20:23)
[2020-01-17] MEDS: ATORVASTATIN 40 MG TABLET PO SCH (20:24)
[2020-01-17] MEDS ORDERED: INSULIN GLARGINE 100 UNITS/ML, PEN SQ-INSULIN SCH (21:00)
[2020-01-17] MEDS: ESZOPICLONE 1 MG HOMEMEDPO PRN (22:31)
[2020-01-17] MEDS: ACETAMINOPHEN 325 MG TABLET PO PRN (22:31)
[2020-01-18 04:53] LABS: BASOPHILS # (AUTO) 0.02 x10^3/uL (0-0.1); BASOPHILS % (AUTO) 0 % (0-1); EOSINOPHILS # (AUTO) 0.31 x10^3/uL (0-0.4); EOSINOPHILS % (AUTO) 3 % (1-7); LYMPHOCYTES # (AUTO) 0.74 x10^3/uL (1-3.4); LYMPHOCYTES % (AUTO) 8 % (22-44); MD NO; MEAN CORPUSCULAR HEMOGLOBIN 29.6 pg (27.5-34.5); MEAN CORPUSCULAR HGB CONC 33.2 g/dL (33.2-36.2); MEAN CORPUSCULAR VOLUME 88.9 fL (81-97); MEAN PLATELET VOLUME 7.1 fL (7.4-10.4); MONOCYTES # (AUTO) 0.81 x10^3/uL (0.2-0.8); MONOCYTES % (AUTO) 9 % (2-9); NEUTROPHILS # (AUTO) 7.45 x10^3/uL (1.8-6.8); NEUTROPHILS % (AUTO) 80 % (42-75); PLATELET COUNT 312 x10^3/uL (130-400); RED CELL DISTRIBUTION WIDTH 15.2 % (9.4-14.8)
[2020-01-18 05:05] LABS: ALBUMIN 2.2 g/dL (3.4-5.0); ANION GAP 8 mmol/L (5-15); CALCIUM 8.2 mg/dL (8.5-10.1); CHLORIDE 100 mmol/L (98-107)
[2020-01-18 05:08] LABS: CREATININE 6.19 mg/dL (0.7-1.3)
[2020-01-18 05:13] VITALS: BP 133/65
[2020-01-18 07:03] VITALS: BP 128/51
[2020-01-18] MEDS: INSULIN LISPRO 100 UNITS/ML, PEN SQ-INSULIN SCH ×4 (07:42→20:51)
[2020-01-18] MEDS ORDERED: LIDOCAINE 1%, 20ML ONE (07:47)
[2020-01-18] MEDS ORDERED: FLUMAZENIL 0.1 MG/1 ML, 5ML ONE (07:51)
[2020-01-18] MEDS ORDERED: MIDAZOLAM 1 MG/ML, 5ML ONE (07:51)
[2020-01-18] MEDS ORDERED: NALOXONE 1 MG/ML, 2ML ONE (07:51)
[2020-01-18] MEDS ORDERED: FENTANYL PF 100 MCG/2ML ONE (07:51)
[2020-01-18] MEDS ORDERED: CEFAZOLIN PMX 1GM/50ML 50 ML ONE (07:55)
[2020-01-18] MEDS: AMLODIPINE 5 MG TABLET PO SCH ×2 (10:05→20:51)
[2020-01-18] MEDS: IRON SUCROSE COMPLEX 100MG/5ML IV SCH (10:06)
[2020-01-18] MEDS: AMIODARONE 200 MG TABLET PO SCH ×2 (10:06→20:50)
[2020-01-18] MEDS: SODIUM CHLORIDE FLUSH 10ML SYR IVF SCH ×2 (10:06→20:52)
[2020-01-18] MEDS: CHOLECALCIFEROL 5,000u TAB PO SCH (10:33)
[2020-01-18] MEDS: OXYcodone/APAP 5/325MG TABLET PO PRN ×3 (10:33→23:36)
[2020-01-18 14:02] VITALS: BP 151/72
[2020-01-18] MEDS ORDERED: INSULIN GLARGINE 100 UNITS/ML, PEN SQ-INSULIN ONE (15:30)
[2020-01-18] MEDS: DOCUSATE 100 MG CAPSULE PO PRN (18:22)
[2020-01-18 19:35] VITALS: BP 152/67
[2020-01-18] MEDS: ATORVASTATIN 40 MG TABLET PO SCH (20:50)
[2020-01-18] MEDS: INSULIN GLARGINE 100 UNITS/ML, PEN SQ-INSULIN SCH (20:52)
[2020-01-18] MEDS: MELATONIN 5 MG TABLET PO PRN (22:53)
[2020-01-18] MEDS: TERAZOSIN 2MG CAPSULE PO SCH (22:53)
[2020-01-18 23:30] VITALS: BP 150/71
[2020-01-19 02:12] VITALS: BP 152/67
[2020-01-19 03:28] VITALS: BP 150/60
[2020-01-19 05:40] LABS: BASOPHILS # (AUTO) 0.02 x10^3/uL (0-0.1); BASOPHILS % (AUTO) 0 % (0-1); EOSINOPHILS # (AUTO) 0.13 x10^3/uL (0-0.4); EOSINOPHILS % (AUTO) 1 % (1-7); LYMPHOCYTES # (AUTO) 0.47 x10^3/uL (1-3.4); LYMPHOCYTES % (AUTO) 5 % (22-44); MD NO; MEAN CORPUSCULAR HEMOGLOBIN 29.4 pg (27.5-34.5); MEAN CORPUSCULAR HGB CONC 32.9 g/dL (33.2-36.2); MEAN CORPUSCULAR VOLUME 89.5 fL (81-97); MEAN PLATELET VOLUME 7.1 fL (7.4-10.4); MONOCYTES # (AUTO) 0.99 x10^3/uL (0.2-0.8); MONOCYTES % (AUTO) 11 % (2-9); NEUTROPHILS # (AUTO) 7.76 x10^3/uL (1.8-6.8); NEUTROPHILS % (AUTO) 83 % (42-75); PLATELET COUNT 302 x10^3/uL (130-400); RED CELL DISTRIBUTION WIDTH 15.3 % (9.4-14.8)
[2020-01-19 05:54] LABS: CHLORIDE 100 mmol/L (98-107)
[2020-01-19 06:05] LABS: ALANINE AMINOTRANSFERASE 9 U/L (12-78); ALBUMIN 2.2 g/dL (3.4-5.0); ALKALINE PHOSPHATASE 79 U/L (45-117); ANION GAP 8 mmol/L (5-15); BILIRUBIN,TOTAL 0.3 mg/dL (0.2-1.0); CALCIUM 8.4 mg/dL (8.5-10.1); CREATININE 5.42 mg/dL (0.7-1.3); TOTAL PROTEIN 6.6 g/dL (6.4-8.2)
[2020-01-19 06:29] VITALS: BP 151/67
[2020-01-19] MEDS: INSULIN GLARGINE 100 UNITS/ML, PEN SQ-INSULIN SCH ×2 (09:00→21:17)
[2020-01-19] MEDS: IRON SUCROSE COMPLEX 100MG/5ML IV SCH (09:10)
[2020-01-19] MEDS: AMLODIPINE 5 MG TABLET PO SCH ×2 (09:10→21:15)
[2020-01-19] MEDS: AMIODARONE 200 MG TABLET PO SCH ×2 (09:10→21:15)
[2020-01-19] MEDS: SODIUM CHLORIDE FLUSH 10ML SYR IVF SCH ×2 (09:11→21:00)
[2020-01-19] MEDS: INSULIN LISPRO 100 UNITS/ML, PEN SQ-INSULIN SCH ×4 (09:12→21:16)
[2020-01-19] MEDS: OXYcodone/APAP 5/325MG TABLET PO PRN (09:30)
[2020-01-19] MEDS: ERGOCALCIFEROL 50,000 UNIT CAPSULE PO SCH (11:57)
[2020-01-19 15:48] VITALS: BP 126/57
[2020-01-19] MEDS ORDERED: FUROSEMIDE 20 MG/2 ML IV SCH ×2 (17:00)
[2020-01-19 17:44] VITALS: BP 133/81
[2020-01-19 20:52] VITALS: BP 163/66
[2020-01-19] MEDS: ATORVASTATIN 40 MG TABLET PO SCH (21:15)
[2020-01-19] MEDS: TERAZOSIN 2MG CAPSULE PO SCH (21:15)
[2020-01-19] MEDS: MELATONIN 5 MG TABLET PO PRN (22:52)
[2020-01-20 00:58] VITALS: BP 129/51
[2020-01-20 04:47] LABS: BASOPHILS # (AUTO) 0.02 x10^3/uL (0-0.1); BASOPHILS % (AUTO) 0 % (0-1); EOSINOPHILS # (AUTO) 0.14 x10^3/uL (0-0.4); EOSINOPHILS % (AUTO) 2 % (1-7); LYMPHOCYTES # (AUTO) 0.55 x10^3/uL (1-3.4); LYMPHOCYTES % (AUTO) 7 % (22-44); MD NO; MEAN CORPUSCULAR HEMOGLOBIN 28.9 pg (27.5-34.5); MEAN CORPUSCULAR VOLUME 90.5 fL (81-97); MEAN PLATELET VOLUME 6.5 fL (7.4-10.4); MONOCYTES % (AUTO) 12 % (2-9); NEUTROPHILS # (AUTO) 6.57 x10^3/uL (1.8-6.8); NEUTROPHILS % (AUTO) 79 % (42-75); PLATELET COUNT 280 x10^3/uL (130-400); RED BLOOD COUNT 3.11 x10^6/uL (4.38-5.82); RED CELL DISTRIBUTION WIDTH 14.9 % (9.4-14.8)
[2020-01-20 05:00] LABS: CHLORIDE 99 mmol/L (98-107)
[2020-01-20 05:08] LABS: ANION GAP 7 mmol/L (5-15); CALCIUM 8.2 mg/dL (8.5-10.1); CREATININE 4.03 mg/dL (0.7-1.3)
[2020-01-20] MEDS: INSULIN LISPRO 100 UNITS/ML, PEN SQ-INSULIN SCH ×4 (07:00→20:25)
[2020-01-20 07:14] VITALS: BP 137/62
[2020-01-20] MEDS: SODIUM CHLORIDE FLUSH 10ML SYR IVF SCH ×2 (09:00→20:25)
[2020-01-20] MEDS: AMIODARONE 200 MG TABLET PO SCH ×3 (09:13→14:43)
[2020-01-20] MEDS: AMLODIPINE 5 MG TABLET PO SCH (09:13)
[2020-01-20] MEDS: INSULIN GLARGINE 100 UNITS/ML, PEN SQ-INSULIN SCH ×2 (09:14→20:24)
[2020-01-20] MEDS: OXYcodone/APAP 5/325MG TABLET PO PRN (09:31)
[2020-01-20 13:54] VITALS: BP 145/62
[2020-01-20] MEDS ORDERED: RIVAROXABAN 15 MG TABLET PO SCH (17:00)
[2020-01-20 20:09] VITALS: BP 154/57
[2020-01-20] MEDS: AMLODIPINE 10 MG TAB PO SCH (20:23)
[2020-01-20] MEDS: TERAZOSIN 2MG CAPSULE PO SCH (20:23)
[2020-01-20] MEDS: ATORVASTATIN 40 MG TABLET PO SCH (20:23)
[2020-01-21] VITALS (7 sets, daily range): BP systolic 111–142; BP diastolic 52–66
[2020-01-21 05:12] LABS: ALBUMIN 2.3 g/dL (3.4-5.0); ANION GAP 7 mmol/L (5-15); CALCIUM 7.9 mg/dL (8.5-10.1); CHLORIDE 103 mmol/L (98-107)
[2020-01-21 05:13] LABS: CREATININE 3.63 mg/dL (0.7-1.3)
[2020-01-21] MEDS: INSULIN LISPRO 100 UNITS/ML, PEN SQ-INSULIN SCH ×4 (07:23→21:02)
[2020-01-21] MEDS: INSULIN GLARGINE 100 UNITS/ML, PEN SQ-INSULIN SCH ×2 (08:59→21:03)
[2020-01-21] MEDS: SODIUM CHLORIDE FLUSH 10ML SYR IVF SCH ×2 (09:00→21:01)
[2020-01-21] MEDS: AMIODARONE 200 MG TABLET PO SCH (09:04)
[2020-01-21] MEDS: AMLODIPINE 10 MG TAB PO SCH (09:04)
[2020-01-21] MEDS: CARVEDILOL 6.25 MG TABLET PO SCH ×2 (11:47→17:05)
[2020-01-21] MEDS ORDERED: LIDOCAINE-MPF 1%, 5ML ONE (15:48)
[2020-01-21] MEDS: TERAZOSIN 2MG CAPSULE PO SCH (21:01)
[2020-01-21] MEDS: ATORVASTATIN 40 MG TABLET PO SCH (21:02)
[2020-01-21] MEDS: MELATONIN 5 MG TABLET PO PRN (21:02)
[2020-01-22] VITALS (11 sets, daily range): BP systolic 110–143; BP diastolic 50–72
[2020-01-22 04:53] LABS: BASOPHILS # (AUTO) 0.01 x10^3/uL (0-0.1); BASOPHILS % (AUTO) 0 % (0-1); EOSINOPHILS # (AUTO) 0.24 x10^3/uL (0-0.4); EOSINOPHILS % (AUTO) 2 % (1-7); LYMPHOCYTES # (AUTO) 0.85 x10^3/uL (1-3.4); LYMPHOCYTES % (AUTO) 8 % (22-44); MD NO; MEAN CORPUSCULAR HEMOGLOBIN 29.6 pg (27.5-34.5); MEAN CORPUSCULAR VOLUME 89.7 fL (81-97); MEAN PLATELET VOLUME 6.4 fL (7.4-10.4); MONOCYTES # (AUTO) 1.19 x10^3/uL (0.2-0.8); MONOCYTES % (AUTO) 12 % (2-9); NEUTROPHILS # (AUTO) 8.04 x10^3/uL (1.8-6.8); NEUTROPHILS % (AUTO) 78 % (42-75); PLATELET COUNT 264 x10^3/uL (130-400); RED BLOOD COUNT 2.86 x10^6/uL (4.38-5.82); RED CELL DISTRIBUTION WIDTH 15.5 % (9.4-14.8)
[2020-01-22 05:05] LABS: ANION GAP 5 mmol/L (5-15); CHLORIDE 102 mmol/L (98-107); CREATININE 4.04 mg/dL (0.7-1.3)
[2020-01-22] MEDS: CARVEDILOL 6.25 MG TABLET PO SCH ×2 (05:51→18:00)
[2020-01-22] MEDS: INSULIN LISPRO 100 UNITS/ML, PEN SQ-INSULIN SCH ×4 (07:00→21:04)
[2020-01-22] MEDS: DEXTROSE 50%, 50ML SYRINGE IVPush PRN ×2 (07:20→08:55)
[2020-01-22 07:50] LABS: O2 FLOW 5 L/min
[2020-01-22 08:04] LABS: ALBUMIN 2.3 g/dL (3.4-5.0); ANION GAP 7 mmol/L (5-15); CHLORIDE 103 mmol/L (98-107)
[2020-01-22 08:07] LABS: ALANINE AMINOTRANSFERASE 13 U/L (12-78); ALKALINE PHOSPHATASE 69 U/L (45-117); BILIRUBIN,TOTAL 0.3 mg/dL (0.2-1.0); TOTAL PROTEIN 6.2 g/dL (6.4-8.2)
[2020-01-22] MEDS: INSULIN GLARGINE 100 UNITS/ML, PEN SQ-INSULIN SCH (08:09)
[2020-01-22] MEDS: AMIODARONE 200 MG TABLET PO SCH (09:00)
[2020-01-22] MEDS ORDERED: DEXTROSE 10%, 1,000ML IV SCH (09:00)
[2020-01-22] MEDS: SODIUM CHLORIDE FLUSH 10ML SYR IVF SCH ×2 (09:00→21:00)
[2020-01-22] MEDS ORDERED: DEXTROSE 50%, 50ML VIAL ONE (15:00)
[2020-01-22] MEDS: MELATONIN 5 MG TABLET PO PRN (21:03)
[2020-01-22] MEDS: ATORVASTATIN 40 MG TABLET PO SCH (21:03)
[2020-01-22] MEDS: TERAZOSIN 2MG CAPSULE PO SCH (21:03)
[2020-01-23 00:52] VITALS: BP 124/70
[2020-01-23 05:59] LABS: BASOPHILS # (AUTO) 0.02 x10^3/uL (0-0.1); BASOPHILS % (AUTO) 0 % (0-1); EOSINOPHILS # (AUTO) 0.25 x10^3/uL (0-0.4); EOSINOPHILS % (AUTO) 2 % (1-7); LYMPHOCYTES # (AUTO) 0.64 x10^3/uL (1-3.4); LYMPHOCYTES % (AUTO) 6 % (22-44); MD NO; MEAN CORPUSCULAR HEMOGLOBIN 29.8 pg (27.5-34.5); MEAN CORPUSCULAR HGB CONC 33.2 g/dL (33.2-36.2); MEAN CORPUSCULAR VOLUME 89.8 fL (81-97); MEAN PLATELET VOLUME 7.1 fL (7.4-10.4); MONOCYTES # (AUTO) 1.07 x10^3/uL (0.2-0.8); MONOCYTES % (AUTO) 10 % (2-9); NEUTROPHILS # (AUTO) 8.61 x10^3/uL (1.8-6.8); NEUTROPHILS % (AUTO) 81 % (42-75); PLATELET COUNT 238 x10^3/uL (130-400); RED BLOOD COUNT 2.69 x10^6/uL (4.38-5.82); RED CELL DISTRIBUTION WIDTH 15.9 % (9.4-14.8)
[2020-01-23 06:07] VITALS: BP 143/59
[2020-01-23 06:09] LABS: CHLORIDE 103 mmol/L (98-107)
[2020-01-23] MEDS: CARVEDILOL 6.25 MG TABLET PO SCH ×2 (06:09→17:27)
[2020-01-23 06:16] LABS: ALANINE AMINOTRANSFERASE 30 U/L (12-78); ALBUMIN 2.2 g/dL (3.4-5.0); ALKALINE PHOSPHATASE 75 U/L (45-117); ANION GAP 7 mmol/L (5-15); BILIRUBIN,TOTAL 0.2 mg/dL (0.2-1.0); CALCIUM 7.8 mg/dL (8.5-10.1); CREATININE 3.16 mg/dL (0.7-1.3)
[2020-01-23] MEDS: INSULIN LISPRO 100 UNITS/ML, PEN SQ-INSULIN SCH ×4 (08:25→21:36)
[2020-01-23] MEDS: SODIUM CHLORIDE FLUSH 10ML SYR IVF SCH ×2 (08:26→20:33)
[2020-01-23] MEDS: AMIODARONE 200 MG TABLET PO SCH (08:26)
[2020-01-23 08:31] VITALS: BP 137/62
[2020-01-23] MEDS ORDERED: ARANESP 100 MCG/ML **ESRD SQ SCH (11:30)
[2020-01-23 12:12] VITALS: BP 141/58
[2020-01-23] MEDS: FUROSEMIDE 40 MG TABLET PO SCH (17:27)
[2020-01-23 19:06] VITALS: BP 106/61
[2020-01-23] MEDS: MELATONIN 5 MG TABLET PO PRN (20:32)
[2020-01-23] MEDS: TERAZOSIN 2MG CAPSULE PO SCH (20:32)
[2020-01-23] MEDS: ATORVASTATIN 40 MG TABLET PO SCH (20:33)
[2020-01-23] MEDS: INSULIN GLARGINE 100 UNITS/ML, PEN SQ-INSULIN SCH (20:34)
[2020-01-23 20:36] VITALS: BP 135/65
[2020-01-24 00:12] VITALS: BP 116/60
[2020-01-24 05:08] LABS: MEAN CORPUSCULAR HEMOGLOBIN 29.4 pg (27.5-34.5); MEAN CORPUSCULAR HGB CONC 32.4 g/dL (33.2-36.2); MEAN CORPUSCULAR VOLUME 90.7 fL (81-97); MEAN PLATELET VOLUME 7.3 fL (7.4-10.4); PLATELET COUNT 267 x10^3/uL (130-400); RED BLOOD COUNT 2.74 x10^6/uL (4.38-5.82)
[2020-01-24 05:17] LABS: ALBUMIN 2.5 g/dL (3.4-5.0); ANION GAP 5 mmol/L (5-15); CHLORIDE 102 mmol/L (98-107); CREATININE 3.51 mg/dL (0.7-1.3)
[2020-01-24 06:03] VITALS: BP 121/61
[2020-01-24 06:04] LABS: BASOPHILS # (AUTO) 0.06 x10^3/uL (0-0.1); BASOPHILS % (AUTO) 1 % (0-1); EOSINOPHILS # (AUTO) 0.22 x10^3/uL (0-0.4); EOSINOPHILS % (AUTO) 2 % (1-7); LYMPHOCYTES # (AUTO) 0.89 x10^3/uL (1-3.4); LYMPHOCYTES % (AUTO) 8 % (22-44); MD SCAN; MONOCYTES # (AUTO) 1.11 x10^3/uL (0.2-0.8); MONOCYTES % (AUTO) 10 % (2-9); NEUTROPHILS # (AUTO) 8.93 x10^3/uL (1.8-6.8); NEUTROPHILS % (AUTO) 80 % (42-75)
[2020-01-24] MEDS: CARVEDILOL 6.25 MG TABLET PO SCH ×2 (06:10→17:01)
[2020-01-24] MEDS: INSULIN LISPRO 100 UNITS/ML, PEN SQ-INSULIN SCH ×4 (08:37→20:35)
[2020-01-24] MEDS: INSULIN GLARGINE 100 UNITS/ML, PEN SQ-INSULIN SCH ×2 (08:37→20:36)
[2020-01-24] MEDS: AMIODARONE 200 MG TABLET PO SCH (08:39)
[2020-01-24] MEDS: FUROSEMIDE 40 MG TABLET PO SCH ×2 (08:39→17:01)
[2020-01-24] MEDS: SODIUM CHLORIDE FLUSH 10ML SYR IVF SCH ×2 (08:40→20:31)
[2020-01-24 13:52] VITALS: BP 123/61
[2020-01-24 20:18] VITALS: BP 126/63
[2020-01-24] MEDS: ATORVASTATIN 40 MG TABLET PO SCH (20:31)
[2020-01-24] MEDS: TERAZOSIN 2MG CAPSULE PO SCH (20:31)
[2020-01-24 23:08] VITALS: BP 129/66
[2020-01-25] MEDS: CARVEDILOL 6.25 MG TABLET PO SCH ×2 (06:23→16:30)
[2020-01-25 06:38] LABS: MEAN CORPUSCULAR HEMOGLOBIN 30.3 pg (27.5-34.5); MEAN CORPUSCULAR HGB CONC 33.7 g/dL (33.2-36.2); MEAN PLATELET VOLUME 6.9 fL (7.4-10.4); PLATELET COUNT 269 x10^3/uL (130-400); RED CELL DISTRIBUTION WIDTH 16.8 % (9.4-14.8)
[2020-01-25 06:47] LABS: ALBUMIN 2.4 g/dL (3.4-5.0); ANION GAP 7 mmol/L (5-15); CHLORIDE 101 mmol/L (98-107); CREATININE 3.81 mg/dL (0.7-1.3)
[2020-01-25] MEDS: INSULIN LISPRO 100 UNITS/ML, PEN SQ-INSULIN SCH ×5 (07:11→21:00)
[2020-01-25 07:38] LABS: BASOPHILS # (AUTO) 0.03 x10^3/uL (0-0.1); BASOPHILS % (AUTO) 0 % (0-1); EOSINOPHILS # (AUTO) 0.29 x10^3/uL (0-0.4); EOSINOPHILS % (AUTO) 2 % (1-7); LYMPHOCYTES # (AUTO) 0.83 x10^3/uL (1-3.4); LYMPHOCYTES % (AUTO) 7 % (22-44); MD SCAN; MONOCYTES # (AUTO) 1.34 x10^3/uL (0.2-0.8); MONOCYTES % (AUTO) 11 % (2-9); NEUTROPHILS # (AUTO) 9.96 x10^3/uL (1.8-6.8); NEUTROPHILS % (AUTO) 80 % (42-75)
[2020-01-25 07:45] VITALS: BP 137/75
[2020-01-25] MEDS: AMIODARONE 200 MG TABLET PO SCH (08:13)
[2020-01-25] MEDS: FUROSEMIDE 40 MG TABLET PO SCH ×2 (08:13→16:30)
[2020-01-25] MEDS: SODIUM CHLORIDE FLUSH 10ML SYR IVF SCH ×2 (08:15→20:59)
[2020-01-25] MEDS: INSULIN GLARGINE 100 UNITS/ML, PEN SQ-INSULIN SCH ×2 (08:17→21:00)
[2020-01-25 14:05] VITALS: BP 133/61
[2020-01-25 19:44] VITALS: BP 148/72
[2020-01-25] MEDS: TERAZOSIN 2MG CAPSULE PO SCH (20:57)
[2020-01-25] MEDS: MELATONIN 5 MG TABLET PO PRN (20:57)
[2020-01-25] MEDS: ATORVASTATIN 40 MG TABLET PO SCH (20:59)
[2020-01-25 23:48] VITALS: BP 107/55
[2020-01-26] MEDS: CARVEDILOL 6.25 MG TABLET PO SCH ×2 (05:07→16:34)
[2020-01-26] MEDS: FUROSEMIDE 40 MG TABLET PO SCH (08:10)
[2020-01-26] MEDS: AMIODARONE 200 MG TABLET PO SCH (08:10)
[2020-01-26] MEDS: SODIUM CHLORIDE FLUSH 10ML SYR IVF SCH ×2 (08:10→20:32)
[2020-01-26] MEDS: INSULIN GLARGINE 100 UNITS/ML, PEN SQ-INSULIN SCH ×2 (08:15→20:32)
[2020-01-26] MEDS: INSULIN LISPRO 100 UNITS/ML, PEN SQ-INSULIN SCH ×4 (08:18→20:32)
[2020-01-26 09:30] VITALS: BP 123/63
[2020-01-26] MEDS: DOCUSATE 100 MG CAPSULE PO PRN (11:15)
[2020-01-26] MEDS: ERGOCALCIFEROL 50,000 UNIT CAPSULE PO SCH (11:21)
[2020-01-26 14:58] VITALS: BP 152/65
[2020-01-26] MEDS: FUROSEMIDE 80 MG TABLET PO SCH (16:33)
[2020-01-26 20:08] VITALS: BP 139/64
[2020-01-26] MEDS: ATORVASTATIN 40 MG TABLET PO SCH (20:31)
[2020-01-26] MEDS: TERAZOSIN 2MG CAPSULE PO SCH (20:31)
[2020-01-27 00:56] VITALS: BP 126/63
[2020-01-27 05:41] LABS: BASOPHILS # (AUTO) 0.05 x10^3/uL (0-0.1); BASOPHILS % (AUTO) 0 % (0-1); EOSINOPHILS # (AUTO) 0.21 x10^3/uL (0-0.4); EOSINOPHILS % (AUTO) 2 % (1-7); LYMPHOCYTES # (AUTO) 0.72 x10^3/uL (1-3.4); LYMPHOCYTES % (AUTO) 6 % (22-44); MD NO; MEAN CORPUSCULAR HEMOGLOBIN 29.6 pg (27.5-34.5); MEAN CORPUSCULAR HGB CONC 32.6 g/dL (33.2-36.2); MEAN CORPUSCULAR VOLUME 90.9 fL (81-97); MEAN PLATELET VOLUME 7.1 fL (7.4-10.4); MONOCYTES # (AUTO) 1.37 x10^3/uL (0.2-0.8); MONOCYTES % (AUTO) 10 % (2-9); NEUTROPHILS # (AUTO) 10.77 x10^3/uL (1.8-6.8); NEUTROPHILS % (AUTO) 82 % (42-75); PLATELET COUNT 265 x10^3/uL (130-400); RED BLOOD COUNT 2.63 x10^6/uL (4.38-5.82); RED CELL DISTRIBUTION WIDTH 16.5 % (9.4-14.8)
[2020-01-27 05:47] LABS: ALBUMIN 2.4 g/dL (3.4-5.0); ANION GAP 7 mmol/L (5-15); CHLORIDE 100 mmol/L (98-107); CREATININE 3.38 mg/dL (0.7-1.3)
[2020-01-27 05:53] VITALS: BP 123/63
[2020-01-27] MEDS: CARVEDILOL 6.25 MG TABLET PO SCH (05:53)
[2020-01-27] MEDS ORDERED: METOLAZONE 2.5 MG TABLET PO ONE (07:30)
[2020-01-27] MEDS ORDERED: SODIUM ZIRCONIUM CYCLOSILICATE 10 GM PO ONE (07:30)
[2020-01-27 07:52] VITALS: BP 126/83
[2020-01-27] MEDS: INSULIN LISPRO 100 UNITS/ML, PEN SQ-INSULIN SCH ×2 (08:00→11:00)
[2020-01-27] MEDS: AMIODARONE 200 MG TABLET PO SCH (08:17)
[2020-01-27] MEDS: FUROSEMIDE 80 MG TABLET PO SCH (08:17)
[2020-01-27] MEDS: SODIUM CHLORIDE FLUSH 10ML SYR IVF SCH (08:19)
[2020-01-27] MEDS: INSULIN GLARGINE 100 UNITS/ML, PEN SQ-INSULIN SCH (08:19)
[2020-01-27] MEDS ORDERED: FURO80TA3 PO (10:34)
[2020-01-27] MEDS ORDERED: ERGO500017 PO (10:34)
[2020-01-27] MEDS ORDERED: AMIO200T42 PO (10:34)
[2020-01-27] MEDS ORDERED: INSU100I13 SC (10:34)
[2020-01-27] MEDS ORDERED: INSU100C5 SQ-INSULIN (10:34)
== END 2020-01-27 11:53 | disposition home or self-care (01) | DRG 242 ==
LOC: ED 16:26 → EDIP 16:27 → ED 16:28 → 4EST 18:33 → 5SO 01-13 16:57 → DCLOUNGE 01-27 11:42
PROVIDERS: ADMIT Internal Medicine Infectious Disease; ATTEND Family Medicine
PROC: 0JH606Z Insertion of Pacemaker, Dual Chamber into Chest Subcutaneous Tissue and Fascia, Open Approach (ICD-10-PCS; principal; 2020-01-14)
PROC: 02H63JZ Insertion of Pacemaker Lead into Right Atrium, Percutaneous Approach (ICD-10-PCS; 2020-01-14)
PROC: 02HK3JZ Insertion of Pacemaker Lead into Right Ventricle, Percutaneous Approach (ICD-10-PCS; 2020-01-14)
PROC: 0JH63XZ Insertion of Tunneled Vascular Access Device into Chest Subcutaneous Tissue and Fascia, Percutaneous Approach (ICD-10-PCS; 2020-01-18)
PROC: 02H633Z Insertion of Infusion Device into Right Atrium, Percutaneous Approach (ICD-10-PCS; 2020-01-18)
PROC: B548ZZA Ultrasonography of Superior Vena Cava, Guidance (ICD-10-PCS; 2020-01-18)
PROC: 5A1D70Z Performance of Urinary Filtration, Intermittent, Less than 6 Hours Per Day (ICD-10-PCS; 2020-01-18)
DX: I49.5 Sick sinus syndrome (principal); I50.33 Acute on chronic diastolic (congestive) heart failure; N17.0 Acute kidney failure with tubular necrosis; J96.01 Acute respiratory failure with hypoxia; I13.0 Hypertensive heart and chronic kidney disease with heart failure and stage 1 through stage 4 chronic kidney disease, or unspecified chronic kidney disease; I48.92 Unspecified atrial flutter; N18.4 Chronic kidney disease, stage 4 (severe); D68.69 Other thrombophilia; J81.1 Chronic pulmonary edema; E11.22 Type 2 diabetes mellitus with diabetic chronic kidney disease; D72.829 Elevated white blood cell count, unspecified; D63.1 Anemia in chronic kidney disease; K59.00 Constipation, unspecified; I48.0 Paroxysmal atrial fibrillation; E78.5 Hyperlipidemia, unspecified; N25.0 Renal osteodystrophy; M89.8X9 Other specified disorders of bone, unspecified site; F32.9 Major depressive disorder, single episode, unspecified; F41.9 Anxiety disorder, unspecified; E83.39 Other disorders of phosphorus metabolism; E11.649 Type 2 diabetes mellitus with hypoglycemia without coma; E11.65 Type 2 diabetes mellitus with hyperglycemia; F17.210 Nicotine dependence, cigarettes, uncomplicated; Z20.828 Contact with and (suspected) exposure to other viral communicable diseases; Z53.9 Procedure and treatment not carried out, unspecified reason; Z79.01 Long term (current) use of anticoagulants; Z79.4 Long term (current) use of insulin; Z85.528 Personal history of other malignant neoplasm of kidney; Z96.651 Presence of right artificial knee joint; Z99.2 Dependence on renal dialysis; Z90.49 Acquired absence of other specified parts of digestive tract; E66.9 Obesity, unspecified; Z68.34 Body mass index [BMI] 34.0-34.9, adult
CPT/HCPCS: 33208; 36415; 36558; 36600; 71045; 76000; 76937; 77001; 80048; 80053; 80069; 82306; 82436; 82570; 82728; 82803; 82947; 82962; 83036; 83540; 83550; 83735; 83880; 83970; 84100; 84133; 84300; 84443; 84484; 84550; 85025; 85610; 85730; 86480; 86704; 86706; 87340; 87635; 90935; 93005; 93306; 99156; 99157; C1769; C1779; C1785; C1892; C1894; G0378; J0690; J0882; J1644; J1756; J1940; J2250; J3010; G0365; J1642; J1815; J2310; J7030